=== PATIENT | male | born 1945 | race Caucasian/White ===

== ENCOUNTER 2019-11-14 16:04 | Outpatient (CLI) | payer MEDICARE, SELFPAY ==
--- NOTE | ~2019-11-14 | XR_ITS ---
EXAMINATION: XR lumbar spine bending only DATE: 11/14/2019 16:30 INDICATION: Low back pain. Spinal stenosis. Left leg numbness. TECHNIQUE: 2 lateral views of the lumbar spine were obtained in flexion and extension. COMPARISON: 05/07/2019 FINDINGS: 7 mm anterolisthesis L4 on L5 which is unchanged with flexion and extension. The L4-L5 disc space is severely narrowed with flexion and and moderately narrowed with vacuum phenomena with extension. Ther e is hypomotility in the more cephalad lumbar spine. Chronic mild anterior wedging at T12. Severe dis c height loss at T12-L1 through L2-L3 and moderate disc height loss at L3-L4 and T10-T11. Mild disc h eight loss at T8-T9, T9-T10 and T11-T12. Severe bilateral lower lumbar facet osteoarthritis. Bone isl and at the S1 segment. IMPRESSION: 1. Severe lumbar spondylosis with 7 mm anterolisthesis L4 on L5 which is unchanged with flexion and e xtension. Reviewed, dictated and finalized at location A. IMPRESSION: 1. Severe lumbar spondylosis with 7 mm anterolisthesis L4 on L5 which is unchan ged with flexion and extension.
== END 2019-11-14 16:05 | disposition home or self-care (01) ==
PROVIDERS: PCP Family Medicine; Visit Provider Neurological Surgery
DX: M54.5 Low back pain (principal); M47.816 Spondylosis without myelopathy or radiculopathy, lumbar region; M43.16 Spondylolisthesis, lumbar region
CPT/HCPCS: 72120

== ENCOUNTER 2019-11-28 06:46 | Outpatient (CLI) | payer MEDICARE, SELFPAY ==
--- NOTE | ~2019-11-28 | MR_ITS ---
EXAMINATION: MR lumbar spine wo/w con DATE: 11/28/2019 08:18 INDICATION: Lumbar spinal stenosis and spondylosis with radiculopathy. TECHNIQUE: Magnetic resonance imaging (MRI) of the lumbar spine was performed without and with 18 mL MultiHance intravenous contrast. Sequences included sagittal T2-weighted FSE, sagittal T2-weighted FS FSE, and sagittal and axial T1-weighted FSE. Postcontrast sequences included axial T2-weighted FSE a nd axial and sagittal T1-weighted FS FSE. COMPARISON: Lumbar spine MRI 01/30/2019 FINDINGS: There is 4 mm retrolisthesis of T12 on L1 and 6 mm anterolisthesis of L4 on L5. There is mi ld chronic anterior wedging of T11 and T12 vertebral bodies. There is severely decreased disc height at T12-L1, moderately decreased disc height at L1-L2, severely decreased disc height at L2-L3, modera tely decreased disc height at L3-L4, and severely decreased disc height at L4-L5 with endplate remode ling. The distal spinal cord signal intensity is normal. The conus medullaris is at L1. The following disc levels are specifically discussed: T12-L1: The disc is bulging and has an annular fissure. There is mild bilateral facet joint osteoarth ritis. There is moderate bilateral neural foraminal stenosis. There is mild central canal stenosis. L1-L2: The disc is bulging with superimposed central extrusion. There is moderate bilateral facet phuc nt osteoarthritis. There is moderate bilateral neural foraminal stenosis. There is mild central canal stenosis. L2-L3: The disc is bulging and has an annular fissure. There is mild bilateral facet joint osteoarthr itis. There is mild right and moderate left neural foraminal stenosis. There is mild central canal st enosis. L3-L4: The disc is bulging and has an annular fissure. There is mild bilateral facet joint osteoarthr itis. There is moderate bilateral neural foraminal stenosis. There is mild central canal stenosis. L4-L5: The disc is bulging and has an annular fissure. There is severe bilateral facet joint osteoart hritis. There is severe bilateral neural foraminal stenosis. There is mild central canal stenosis. L5-S1: The disc does not extend beyond the endplate margin. There is severe right and moderate left f acet joint osteoarthritis. There is no neural foraminal stenosis. There is no central canal stenosis. IMPRESSION: 1. Severe lumbar spondylosis, stable from 01/30/2019. Reviewed, dictated and finalized at location A.
[2019-11-28 07:28] LABS: Estimated Glomerular Filt Rate > 60
== END 2019-11-28 06:47 | disposition home or self-care (01) ==
PROVIDERS: PCP Family Medicine; Visit Provider Neurological Surgery
DX: M47.26 Other spondylosis with radiculopathy, lumbar region (principal); M48.062 Spinal stenosis, lumbar region with neurogenic claudication
CPT/HCPCS: 36415; 72158; A9577

== ENCOUNTER 2020-01-03 12:32 | Outpatient (CLI) | payer MEDICARE, SELFPAY ==
--- NOTE | ~2020-01-03 | US_ITS ---
EXAMINATION: US venous doppler LE RT DATE: 01/03/2020 13:13 INDICATION: Right lower limb pain TECHNIQUE: Cline scale images without and with compression and Doppler images of the right lower extre mity veins were obtained. COMPARISON: None FINDINGS: The right common femoral vein, profunda femoral vein, femoral vein, popliteal vein, peronea l trunk, posterior tibial veins, and greater saphenous vein are patent. IMPRESSION: 1. Patent right lower extremity veins. No evidence of deep venous thrombosis. Reviewed, dictated and finalized at location A.
== END 2020-01-03 12:33 | disposition home or self-care (01) ==
LOC: ANHIMG 12:35
PROVIDERS: PCP Family Medicine; Visit Provider Physician Assistant
DX: M79.89 Other specified soft tissue disorders (principal)
CPT/HCPCS: 93971

== ENCOUNTER 2020-02-27 08:25 | Outpatient (CLI) | payer MEDICARE, SELFPAY ==
--- NOTE | ~2020-02-27 | US_ITS ---
US arterial ankle brachial ind INDICATION: Bilateral leg pain TECHNIQUE: Segmental pressures and plethysmographic and Doppler waveforms of the brachial and lower e xtremity arteries were obtained. COMPARISON: None. FINDINGS: Right and left brachial artery pressures of 111 mm Hg and 111 mm Hg, respectively, are concordant (no rmal difference <= 30 mmHg). The right ankle-brachial index (ISH) is 1.33 (normal >= 0.9-1.0). The right great toe-brachial index (TBI) is 1.14 (normal >= 0.60). The left ISH is 1.34. The left TBI is 0.75. IMPRESSION: 1. Normal ankle-brachial indices. Reviewed, dictated and finalized at location B.
== END 2020-02-27 08:26 | disposition home or self-care (01) ==
PROVIDERS: PCP Family Medicine; Visit Provider Nurse Practitioner Adult Health
DX: M79.605 Pain in left leg (principal); M79.604 Pain in right leg; R09.89 Other specified symptoms and signs involving the circulatory and respiratory systems
CPT/HCPCS: 93922

== ENCOUNTER → 2020-09-14 00:13 | Outpatient (CLI) | payer MEDICARE, SELFPAY ==
[2020-09-14 19:28] LABS: SARS-CoV-2 RNA PCR Negative
== END ==
PROVIDERS: PCP Family Medicine; Visit Provider Internal Medicine Cardiovascular Disease
DX: Z01.812 Encounter for preprocedural laboratory examination (principal); Z20.822 Contact with and (suspected) exposure to COVID-19
CPT/HCPCS: C9803; U0003; U0005

== ENCOUNTER 2020-09-17 14:57 | Emergency (ER) | payer MEDICARE, SELFPAY ==
[2020-09-17] VITALS (7 sets, daily range): BP systolic 124–141; BP diastolic 73–86; PULSE 62–82; RESP 13–23; TEMP 36.4–37.1; O2SAT 95–99
--- NOTE | ~2020-09-17 | XR_ITS ---
EXAMINATION: XR chest 1V portable EXAM DATE: 09/17/2020 15:32 INDICATION: Generalized chest pain, was supposed to have cardiac catheterization today. TECHNIQUE: Portable AP frontal chest x-ray was obtained. Comparison is made to prior examination from 01/26/2018. FINDINGS: Again there is elevated left hemidiaphragm, raises possibility of paralysis which could be evaluated with a fluoroscopic guided sniff test if indicated clinically. There is adjacent segmental atelectasis. The lungs are otherwise clear. There are no pleural effusions. The cardiomediastinal s ilhouette is within normal limits. There is no pneumothorax suspected. There are mild bony degenera tive changes. IMPRESSION: 1. No acute cardiopulmonary findings. 2. Chronic left hemidiaphragm elevation, adjacent segmental atelectasis. Possible paralysis. Reviewed, dictated and finalized at location A. IMPRESSION: 1. No acute cardiopulmonary findings. 2. Chronic left hemidiaphragm elevation, adjacent segmental atelectasis. Possi ble paralysis.
--- NOTE | ~2020-09-17 | XR_ITS ---
EXAMINATION: XR abdomen obstructive series EXAM DATE: 09/17/2020 16:06 INDICATION: Abd Pain, Pt Stated I Feel Blocked Up . TECHNIQUE: Frontal upright projection of the upper abdomen, frontal projection of the lower abdomen f or interpretation. There is no prior study for comparison. FINDINGS: There is expected amount of colonic stool and gas. No small bowel dilation, nonobstructiv e bowel gas pattern. There are no suspicious calcifications identified. There is no organomegaly suspected. Moderate bony degenerative changes. There is no free intraperitoneal air. The lung bas es are clear. IMPRESSION: Unremarkable abdomen x-ray exam. Reviewed, dictated and finalized at location A.
--- NOTE | 2020-09-17 15:01 | ECG_ITS ---
Measurements Intervals [place] Rate: 73 P: -28 MS: 131 QRS: -29 QRSD: 134 T: 3 QT: 407 QTc: 451 Interpretive Statements SINUS RHYTHM RIGHT BUNDLE BRANCH BLOCK ABNORMAL ECG Electronically Signed On 09-17-2020 16:08:04 CDT by Rubens Ruiz D.O.
[2020-09-17] MEDS: ASPIRIN 81 MG CHEWABLE TABLET 324 MG PO (16:16)
[2020-09-17 16:17] LABS: Basophils Percent Auto 0.5 % (0.2-1.2); Eosinophils Absolute Auto 0.1 K/mm3 (0-0.3); Eosinophils Percent Auto 1.7 % (0-4.4); Hematocrit 40.4 % (42.0-52.0); Hemoglobin 14.1 g/dL (14.0-18.0); Immature Granulocyte Absolute 0.04 K/mm3 (0.00-0.031); Immature Granulocyte Percent A 0.5 % (0-0.5); Lymphocytes Absolute Auto 1.21 K/mm3 (0.9-3.2); Mean Corpuscular HGB Conc 34.9 g/dl (32-36); Mean Corpuscular Hemoglobin 31.6 pg (26-34); Mean Corpuscular Volume 90.6 fl (80-100); Mean Platelet Volume 9.9 fl (7.4-10.4); Monocytes Absolute Auto 0.7 K/mm3 (0.1-0.6); Monocytes Percent Auto 9.8 % (2.6-8.5); Neutrophils Absolute Auto 5.4 K/mm3 (1.3-6.7); Neutrophils Percent Auto 71.5 % (45.5-73.1); Platelet Count Result 265 k/mm3 (150-375); Red Blood Count 4.46 M/mm3 (4.6-6.20); Red Cell Distribution Width 12.4 % (11.5-14.5); White Blood Count 7.6 K/mm3 (4.5-10.0)
[2020-09-17 16:32] LABS: Alanine Aminotransferase 22 U/L (4-50); Albumin Level 4.5 g/dL (3.5-5.1); Alkaline Phosphatase 65 U/L (38-126); Anion Gap 6 mmol/L (8-16); Aspartate Amino Transferase 32 U/L (17-59); Bilirubin,Total 1.2 mg/dL (0.2-1.3); Blood Urea Nitrogen 17 mg/dL (9-20); Calcium 9.1 mg/dL (8.4-10.2); Carbon Dioxide 33 mmol/L (22-30); Chloride 95 mmol/L (98-107); Estimated CRCL calculation 76 ml/min; Estimated Glomerular Filt Rate > 60; Glucose 86 mg/dL (75-110); Sodium 134 mmol/L (137-145)
[2020-09-17 16:42] LABS: Prothrombin Time 13.6 Seconds (11.1-14.7)
[2020-09-17 16:43] LABS: Partial Thromboplastin Time 25.2 SECONDS (22.3-36.8)
[2020-09-17 16:44] LABS: NT Pro B Type Natriuretic Pept 64 PG/ML (5-100); Troponin I < 0.012 ng/mL (0.000-0.034)
[2020-09-17] MEDS: HYOSCYAMINE SULFATE 0.125 MG TABLET PO (17:21)
--- NOTE | 2020-09-17 18:23 | ED.CHESTPAIN ---
HPI - Chest Pain General Chief Complaint: Chest Pain Stated Complaint: Chest Pain, Cath Rescheduled from today Time Seen by Provider: 09/17/20 15:13 Source: patient and old records reviewed Mode of arrival: ambulatory Limitations: no limitations History of Present Illness HPI narrative: Patient is 75-year-old male who presents to emergency department for evaluation of epigastric abdominal pain GI upset that has been present now for over a week patient notes that he was scheduled to have a cardiac catheterization but is waiting for insurance approval. Patient notes he had had a normal catheterization approximately 7 years ago. Patient notes he has been having issues with gas and constant constipation and that his pain is more in the epigastrium and GI in nature. Denies any chest pain shortness of breath URI symptoms vomiting rectal bleeding or melena. On arrival patient is pain-free patient has been having intermittent episodes for over a week Related Data Allergies Allergy/AdvReac Type Severity Reaction Status Date / Time simvastatin Allergy Unknown Unknown Verified 09/17/20 16:16 Review of Systems Review of Systems: All systems reviewed & are unremarkable except as noted in HPI and below PMFSH Past Medical History Medical History Atrophy of muscle of left thigh Colon polyps Surgical History Surgical History History of lumbar laminectomy for spinal cord decompression Family History Family History (Reviewed 08/13/20 @ 14:33 by Alla Denise, [facility]) Mother Family history of thyroid disease Hypertension Other Family history of cardiovascular disease Malignant neoplasm of prostate Social History Social History Smoking status: Never smoker Alcohol intake: never Gender identity (if verbalized by the patient): Male Exam Narrative: Exam Narrative: GENERAL: Well-appearing, well-nourished, and in no acute distress. HEAD: Normocephalic, atraumatic. EYES: PERRLA and EOMI. ENT: Nares clear, no rhinorrhea or epistaxis. Mucous membranes moist. Oropharynx without tonsillar hypertrophy exudate or other lesions. Bilateral TMs pearly ortiz nonbulging NECK: Supple. No adenopathy or masses. No carotid bruits or JVD CHEST: Clear to auscultation. No respiratory distress. No wheezes rales or rhonchi HEART: Regular rate and rhythm. No murmur heard. Normal peripheral pulses. ABDOMEN: Soft, epigastric tenderness to palpation, nondistended, normal active bowel sounds. EXTREMITIES: Normal range of motion. No edema. SKIN: Warm, dry, no rash. NEURO: No focal deficits. Alert and oriented x3. PSYCH: Normal mood and affect. Course Course Emergency Course: Patient in the room in no distress aware of case findings treatment plan and diagnosis agreeing to follow-up as instructed. Patient symptoms seem more GI in nature reproducible with epigastric tenderness symptoms been present for over a week or longer. 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 Patient otherwise in the room in no distress resting comfortably agrees with this plan and is aware of his follow-up with primary care and discussion with primary care for tomorrow Consultations Consultation #1: Discussed case with Dr. Hastings who will follow the patient tomorrow in clinic would like the patient to be treated for constipation Date: 09/17/20 Time: 19:57 Vital Signs Vital signs: Vital Signs Temperature 98.7 F 09/17/20 15:14 Pulse Rate 72 09/17/20 15:14 Respiratory Rate 15 09/17/20 15:14 Blood Pressure 132/80 09/17/20 15:14 Pulse Oximetry 98 09/17/20 15:14 Temperature 98.7 F 09/17/20 15:14 Pulse Rate 75 09/17/20 18:32 Respiratory Rate 17 09/17/20 18:17 Blood Pressure 129/73 09/17/20 18:17 Pulse Oximetry 99 09/17/20 18
[2020-09-17 19:01] LABS: Troponin I < 0.012 ng/mL (0.000-0.034)
== END 2020-09-17 20:18 | disposition home or self-care (01) ==
PROVIDERS: Emergency Medicine Emergency Medical Services; Emergency Provider Emergency Medicine; PCP Family Medicine
DX: R10.13 Epigastric pain (principal); Z86.010 Personal history of colon polyps; I45.10 Unspecified right bundle-branch block; R91.8 Other nonspecific abnormal finding of lung field
CPT/HCPCS: 36415; 71045; 74019; 80053; 83880; 84484; 85025; 85610; 85730; 93005; 99284; A9270

== ENCOUNTER → 2020-10-16 00:28 | Outpatient (CLI) | payer MEDICARE, SELFPAY ==
[2020-10-16 18:42] LABS: SARS-CoV-2 RNA PCR Negative
== END ==
PROVIDERS: Internal Medicine Cardiovascular Disease; PCP Family Medicine; Visit Provider Internal Medicine Gastroenterology
DX: Z01.812 Encounter for preprocedural laboratory examination (principal); Z20.822 Contact with and (suspected) exposure to COVID-19
CPT/HCPCS: C9803; U0003; U0005

== ENCOUNTER 2020-10-19 01:48 | Day surgery (SDC) | payer MEDICARE, SELFPAY ==
[2020-10-08 13:40] VITALS: BMI 31.8
[2020-10-19 10:49] VITALS: BP 142/85; PULSE 73; RESP 18; TEMP 36.3; O2SAT 100; BMI 31.2
[2020-10-19] MEDS: LACTATED RINGERS 1,000 ML 150 ML IV CONT (10:55)
--- NOTE | 2020-10-19 11:16 | P.PNAN_ITS ---
Anes - Initial Pre Proc Eval Procedure: Operation Date: 10/19/20 13:30 Proposed Procedures p Esophagogastroduodenoscopy & Screening Colonoscopy - Felix Bob MD Date/Time: 10/19/20 11:16 Surgeon: Felix Barnes MD Pre Op Diagnosis: hx colon polyps, GERD Patient Data Age: 75 Gender: M Height: 5 ft 8 in Weight: 93.3 kg Last Vital Signs Temp 97.3 F L 10/19/20 10:49 Pulse 73 10/19/20 10:49 Resp 18 10/19/20 10:49 BP 142/85 H 10/19/20 10:49 Pulse Ox 100 10/19/20 10:49 Allergies Allergy/AdvReac Type Severity Reaction Status Date / Time simvastatin Allergy Unknown Cramping Verified 10/19/20 10:46 of the Muscles Home Medications Medication Instructions Recorded Confirmed Type lisinopril 10 1 tablet PO DAILY #90 tablet 01/24/20 10/19/20 Rx mg-hydrochlorothiazide 12.5 mg tablet alprazolam 0.25 mg tablet 0.25 mg PO BID PRN #60 tablet 07/30/20 10/19/20 Rx fluticasone propionate 50 See Rx Instructions .ROUTE 09/02/20 10/19/20 Rx mcg/actuation nasal .COMPLEX #16 milliliter spray,suspension polyethylene glycol 3350 [Miralax] 17 g PO BID #14 ea 09/17/20 10/19/20 Rx pravastatin 10 mg PO DAILY 10/08/20 10/19/20 History famotidine 20 mg tablet See Rx Instructions .ROUTE 10/14/20 10/19/20 Rx .COMPLEX #60 tablet Patient hx anesthesia problems: none Family hx anesthesia problems: none PMFSH Past Medical History Medical History (Updated 10/07/20 @ 15:35 by Elie Hastings MD) Atrophy of muscle of left thigh Colon polyps Obesity (BMI 30.0-34.9) Surgical History Surgical History History of lumbar laminectomy for spinal cord decompression Family History Family History Mother Family history of thyroid disease Hypertension Other Family history of cardiovascular disease Malignant neoplasm of prostate Social History Social History (Reviewed 10/07/20 @ 14:50 by Vanessa Laird [facility]) Smoking status: Former smoker Alcohol intake: never Substance use: current Substance use type: marijuana Other substance usage details: Daily for pain Living arrangements: with family Gender identity (if verbalized by the patient): Male Spiritual care concerns: No Anes - Eval Final PreProcedure Day of Procedure 10/19/20 11:16 Patient weight: overweight Heart: regular rate and rhythm Lungs: clear to auscultation Airway: Mallampati scale class II Neurological: alert and oriented Last oral intake: >/= 8 hours ASA classification: III Emergent: no Anesthetic plan: proceed Anesthesia type and monitoring: general GIVS and standard monitoring Informed Consent: The patient's anesthetic plan and its attendant risks and benefits were discussed with the patient/family/POA. Questions were solicited and answers provided to the satisfaction of the patient/family/POA.
--- NOTE | 2020-10-19 11:40 | PM.HPGS ---
History of Present Illness History of Present Illness Consent: Risks, benefits, and alternatives have been discussed and questions answered. Patient agrees to proceed with procedure. Chief complaint: hx colon polyps, GERD Narrative: Micha Hyatt is a 75 year old male with gerd controlled with famotidine, last colonoscopy 2016 with polyps Review of Systems Constitutional: Constitutional: Denies headache(s) and Denies weakness Eyes: Eyes: Denies blurry vision ENT: Reports Normal hearing present, Denies headache(s) and Denies neck pain Cardiovascular: Cardiovascular: Denies chest pain and Denies dyspnea Respiratory: Respiratory: Denies dyspnea Gastrointestinal: Gastrointestinal: Reports no additional gastrointestinal complaints Genitourinary: Genitourinary: Denies dysuria Musculoskeletal: Musculoskeletal: Denies neck pain Integumentary/Breasts: Skin/Breast: Denies dry skin Neurologic: Reports Normal hearing present, Denies headache(s) and Denies weakness Psychiatric: Psychiatric: Denies anxiety Endocrine: Endocrine: Denies change in body appearance Hematologic/Lymphatic: Hematologic/Lymphatic: Denies easy bleeding Allergic/Immunologic: Allergic/Immunologic: Denies urticaria PMF Past Medical History Medical History (Updated 10/07/20 @ 15:35 by Elie Hastings MD) Atrophy of muscle of left thigh Colon polyps Obesity (BMI 30.0-34.9) Surgical History Surgical History History of lumbar laminectomy for spinal cord decompression Family History Family History Mother Family history of thyroid disease Hypertension Other Family history of cardiovascular disease Malignant neoplasm of prostate Social History Social History Smoking status: Former smoker Alcohol intake: never Substance use: current Substance use type: marijuana Other substance usage details: Daily for pain Living arrangements: with family Gender identity (if verbalized by the patient): Male Spiritual care concerns: No Meds Home Medications and Allergies Home Medications Medication Instructions Recorded Confirmed Type lisinopril 10 1 tablet PO DAILY #90 tablet 01/24/20 10/19/20 Rx mg-hydrochlorothiazide 12.5 mg tablet alprazolam 0.25 mg tablet 0.25 mg PO BID PRN #60 tablet 07/30/20 10/19/20 Rx fluticasone propionate 50 See Rx Instructions .ROUTE 09/02/20 10/19/20 Rx mcg/actuation nasal .COMPLEX #16 milliliter spray,suspension polyethylene glycol 3350 [Miralax] 17 g PO BID #14 ea 09/17/20 10/19/20 Rx pravastatin 10 mg PO DAILY 10/08/20 10/19/20 History famotidine 20 mg tablet See Rx Instructions .ROUTE 10/14/20 10/19/20 Rx .COMPLEX #60 tablet Allergies Allergy/AdvReac Type Severity Reaction Status Date / Time simvastatin Allergy Unknown Cramping Verified 10/19/20 10:46 of the Muscles Vital Signs Vital Signs - 24 hr 10/19/20 10:49 Temperature 97.3 F L Pulse Rate 73 Respiratory Rate 18 Blood Pressure 142/85 H Pulse Oximetry 100 Exam Const: General: comfortable and no acute distress HENMT: General nose exam: Normal nares present Eyes: General: appearance normal, both eyes and all related structures Neck: Neck: no JVD Resp: Auscultation: clear to auscultation bilaterally Cardio: Rate: regular rate Rhythm: regular rhythm GI: Inspection: non-distended GI Palp: Yes Soft to palpation Skin: General skin exam: normal color Neuro: General: gait normal Speech: normal speech Extrem: General: normal to inspection Psych: Mental Status: mental status grossly normal Assessment and Plan Assessment and plan (1) Colon polyps: Code(s): K63.5 - Polyp of colon Status: Acute Assessment and Plan: colonoscopy (2) Gastroesophageal reflux disease with esophagitis:
[2020-10-19 12:16] VITALS: BP 109/74; PULSE 72; RESP 25; O2SAT 99
[2020-10-19 12:26] VITALS: BP 124/70; PULSE 62; RESP 16; O2SAT 99
[2020-10-19 12:36] VITALS: BP 127/82; PULSE 66; RESP 23; O2SAT 99
== END 2020-10-19 12:45 | disposition home or self-care (01) ==
PROVIDERS: PCP Family Medicine; Visit Provider Internal Medicine Gastroenterology
PROC: 0DJ08ZZ Inspection of Upper Intestinal Tract, Via Natural or Artificial Opening Endoscopic (ICD-10-PCS; CPT 43235; principal; 2020-10-19 13:30)
DX: Z12.11 Encounter for screening for malignant neoplasm of colon (principal); D12.2 Benign neoplasm of ascending colon; D12.3 Benign neoplasm of transverse colon; D12.4 Benign neoplasm of descending colon; K63.5 Polyp of colon; K63.89 Other specified diseases of intestine; K57.30 Diverticulosis of large intestine without perforation or abscess without bleeding; K64.8 Other hemorrhoids; D17.5 Benign lipomatous neoplasm of intra-abdominal organs; K29.70 Gastritis, unspecified, without bleeding; K21.9 Gastro-esophageal reflux disease without esophagitis; F12.90 Cannabis use, unspecified, uncomplicated
CPT/HCPCS: 45385; 43239; 88305; C9803; J7120; U0003; U0005

== ENCOUNTER → 2020-11-02 02:11 | Outpatient (CLI) | payer MEDICARE, SELFPAY ==
[2020-11-04 12:52] LABS: SARS-CoV-2 RNA PCR Negative
== END ==
PROVIDERS: PCP Family Medicine; Visit Provider Internal Medicine Cardiovascular Disease
DX: Z01.812 Encounter for preprocedural laboratory examination (principal); Z20.822 Contact with and (suspected) exposure to COVID-19
CPT/HCPCS: C9803; U0003; U0005

== ENCOUNTER 2020-11-05 01:38 | Day surgery (SDC) | payer MEDICARE, SELFPAY ==
[2020-11-04 16:47] VITALS: BMI 31.8
[2020-11-05] VITALS (8 sets, daily range): BP systolic 124–149; BP diastolic 69–84; PULSE 58–76; RESP 14–20; TEMP 36.4; O2SAT 98–100; BMI 31.1
[2020-11-05 07:59] LABS: Basophils Absolute Auto 0.1 K/mm3 (0.0-0.1); Basophils Percent Auto 0.8 % (0.2-1.2); Eosinophils Absolute Auto 0.1 K/mm3 (0-0.3); Eosinophils Percent Auto 1.9 % (0-4.4); Hematocrit 42.3 % (42.0-52.0); Hemoglobin 14.4 g/dL (14.0-18.0); Immature Granulocyte Absolute 0.02 K/mm3 (0.00-0.031); Immature Granulocyte Percent A 0.3 % (0-0.5); Lymphocytes Absolute Auto 1.17 K/mm3 (0.9-3.2); Lymphocytes Percent Auto 18.1 % (18.3-44.2); Mean Corpuscular Hemoglobin 31.4 pg (26-34); Mean Corpuscular Volume 92.4 fl (80-100); Mean Platelet Volume 9.7 fl (7.4-10.4); Monocytes Absolute Auto 0.7 K/mm3 (0.1-0.6); Monocytes Percent Auto 10.2 % (2.6-8.5); Neutrophils Absolute Auto 4.4 K/mm3 (1.3-6.7); Neutrophils Percent Auto 68.7 % (45.5-73.1); Platelet Count Result 271 k/mm3 (150-375); Red Blood Count 4.58 M/mm3 (4.6-6.20); Red Cell Distribution Width 12.5 % (11.5-14.5); White Blood Count 6.5 K/mm3 (4.5-10.0)
--- NOTE | 2020-11-05 08:00 | WPDMODSED ---
Moderate Sedation Note-Pt Data Patient Data Allergies Allergy/AdvReac Type Severity Reaction Status Date / Time simvastatin Allergy Unknown Cramping Verified 10/19/20 10:46 of the Muscles Home Medications Medication Instructions Recorded Confirmed Type lisinopril 10 1 tablet PO DAILY #90 tablet 01/24/20 11/04/20 Rx mg-hydrochlorothiazide 12.5 mg tablet alprazolam 0.25 mg tablet 0.25 mg PO BID PRN #60 tablet 07/30/20 11/04/20 Rx fluticasone propionate 50 See Rx Instructions .ROUTE 09/02/20 11/04/20 Rx mcg/actuation nasal .COMPLEX #16 milliliter spray,suspension polyethylene glycol 3350 [Miralax] 17 g PO BID #14 ea 09/17/20 11/04/20 Rx pravastatin 10 mg PO HS 10/08/20 11/04/20 History famotidine 20 mg tablet See Rx Instructions .ROUTE 10/14/20 11/04/20 Rx .COMPLEX #60 tablet plecanatide 3 mg tablet 3 mg PO DAILY #30 tablet 10/19/20 Rx acetaminophen 1,000 mg PO BID PRN 11/04/20 11/04/20 History aspirin 650 mg PO DAILY PRN 11/04/20 11/04/20 History capsicum (cayenne) 500 mg PO DAILY 11/04/20 11/04/20 History cholecalciferol (vitamin D3) 125 mcg PO DAILY 11/04/20 11/04/20 History [Vitamin D3] coenzyme Q10 100 mg PO DAILY 11/04/20 11/04/20 History ibuprofen 400 mg PO Q6H PRN 11/04/20 11/04/20 History melatonin 10 mg PO HS PRN 11/04/20 11/04/20 History nitroglycerin 0.4 mg SUBLINGUAL Q5M PRN 11/04/20 11/04/20 History pyridoxine (vitamin B6) 100 mg PO DAILY 11/04/20 11/04/20 History Current Medications: Active Medications Sodium Chloride (Normal Saline Iv) 500 mls @ 100 mls/hr IV CONT .Q5H [facility] Sedation/Anesthesia: No previous sedation/anesthesia problems (including family history). [facility] Past Medical History Medical History Atrophy of muscle of left thigh Colon polyps Obesity (BMI 30.0-34.9) Surgical History Surgical History History of lumbar laminectomy for spinal cord decompression Family History Family History Mother Family history of thyroid disease Hypertension Other Family history of cardiovascular disease Malignant neoplasm of prostate Social History Social History Smoking status: Former smoker Alcohol intake: never Substance use: current Substance use type: marijuana Other substance usage details: Daily for pain Gender identity (if verbalized by the patient): Male Spiritual care concerns: No Mod Sed Physical Exam Physical Exam Pre Procedural Exam: Normal: Appearance, Eyes, Ears, Nose, Neck, Throat, Airway, Lungs, Heart Size, Heart Rate, Heart Rhythm, Neuro Exam, Abdomen, Liver, Kidneys, Spleen, Breasts, Genitalia, Extremities and Skin Hours since solid foods: 8 Hours since liquid intake: 8 Internal Medicine - PN: Obj Da Vital Signs Vital Signs: Vital Signs - 24 hr 11/05/20 07:50 Temperature 36.4 C Pulse Rate 68 Respiratory Rate 14 Blood Pressure 149/84 H Pulse Oximetry 98 Meds/Results Medications: Active Medications Generic Name Dose Route Start Last Admin Trade Name Freq PRN Reason Stop Dose Admin Sodium Chloride 500 mls @ 100 mls/hr 11/05/20 07:30 Normal Saline Iv IV CONT .Q5H [facility] Labs CBC & Chem 7: 11/05/20 07:49 11/05/20 07:49 Labs: Laboratory Results - last 24 hr 11/05/20 11/05/20 11/05/20 07:49 07:49 07:49 WBC 6.5 RBC 4.58 L Hgb 14.4 Hct 42.3 MCV 92.4 MCH 31.4 MCHC 34.0 RDW 12.5 Plt Count 271 MPV 9.7 Immature Gran % (Auto) 0.3 Neut % (Auto) 68.7 Lymph % (Auto) 18.1 L [place] % (Auto) 10.2 H Eos % (Auto) 1.9 Baso % (Auto) 0.8 Lymph # (Auto) 1.17 [place] # (Auto) 0.7 H Eos # (Auto) 0.1 Baso # (Auto) 0.1 Abs Immat Gran (auto) 0.02 Absolute Neuts (auto) 4.4 Absolute Nucleated RBC 0.0 N
[2020-11-05 08:08] LABS: INR 0.9; Prothrombin Time 12.7 Seconds (11.1-14.7)
[2020-11-05 08:14] LABS: Anion Gap 8 mmol/L (8-16); Blood Urea Nitrogen 14 mg/dL (9-20); Calcium 9.5 mg/dL (8.4-10.2); Carbon Dioxide 31 mmol/L (22-30); Chloride 98 mmol/L (98-107); Estimated CRCL calculation 68 ml/min; Estimated Glomerular Filt Rate > 60; Glucose 108 mg/dL (75-110); Potassium 3.9 mmol/L (3.4-5.0); Sodium 137 mmol/L (137-145)
--- NOTE | 2020-11-05 09:54 | WPDHPUPDATE1 ---
History and Physical Update Update Date/Time: 11/05/20 08:00 am History and Physical has been reviewed, including an updated exam of the patient. There are NO changes in the patient's condition. Risks, benefits, and alternatives have been discussed and questions answered. Patient agrees to proceed with procedure.
--- NOTE | 2020-11-05 09:55 | WPDCARDPROC ---
Cardiac Cath Procedure Note Date of procedure:: 11/05/20 Performing physician:: Toña Sinha MD Date of service 11/05/2020 Indication:: epigastric abdominal pain Brief clinical history:: this is 75-year-old patient with past medical history hypertension, hyperlipidemia who was evaluated for recurrent episodes of fever epigastric abdominal pain. Due to recurrent episodes of epigastric abdominal pain was brought in here to define coronary anatomy and rule out CAD. Procedure Procedure performed:: 1-Moderate sedation that started at 929 am and ended at 9:50 a.m. with total duration 21 minutes using 2mg of Versed and 50mcg fentanyl. The registered nurse was kassi velázquez 2-Selective left and right coronary angiogram. 3-Left heart catheterization with measurement of LVEDP and measurement of gradient across aortic valve. 4- LV angiogram. 4-Right common femoral arterial angiogram. 5-Deployment of 6 Spanish Angio-Seal. Sedation/Medication given:: Moderate sedation. Access site:: Right common femoral artery. Estimated blood loss:: 10cc Procedure note:: After informed consent patient was brought in to cathode ray tube salvage processor with the was draped and prepped in usual manner. Moderate sedation was given and the right groin was infiltrated using 1% lidocaine. Five Spanish sheath was obtained using micropuncture needle and the modified Seldinger technique. Selective left coronary angiogram was done using JL4 catheter with the tip of the catheter placed in the left main coronary artery. Selective right coronary angiogram was done using JR4 catheter with the tip of the catheter placed to the right coronary artery. After that 5 Spanish pigtail catheter was advanced across the aortic valve into the left ventricle with measurement of LVEDP and measurement of gradient across aortic valve. LV angiogram was done as well. Right common femoral arterial angiogram was done. Findings:: 1- left coronary artery is a large artery that divides into large LAD, large circumflex artery. Left main is Free of disease. 2- left anterior descending artery is a large artery that runs To the apex. Has calcification proximally. Has minimal irregularities. Two medium-sized diagonal branches with minimal irregularities. 3- leftcircumflex artery is a large artery And codominant. Has proximal calcification. Proximally a small OM1 with minimal irregularities. Left PDA is not large small in caliber and free of disease. 4- right coronary artery is very large artery with minimal calcification mid segment. 5- LVEDP was 7 mm Hg and no gradient across aortic valve. 5- LV angiogram shows normal LV systolic function with estimated ejection fraction 55%. 6- opening arterial pressure was 155/80 and closing pressure was 112/70. 7- right femoral artery angiogram shows no significant disease in the right common femoral artery. Conclusion:: 1- minimal coronary irregularities and minimal calcification. Assessment and Plan Additional Plan 1- epigastric abdominal pain is not related to coronary artery disease. 2- Recommend GI follow-up
== END 2020-11-05 13:00 | disposition home or self-care (01) ==
PROVIDERS: PCP Family Medicine; Visit Provider Internal Medicine Cardiovascular Disease
PROC: 4A023N7 Measurement of Cardiac Sampling and Pressure, Left Heart, Percutaneous Approach (ICD-10-PCS; CPT 93452; principal; 2020-11-05 09:00)
DX: R10.13 Epigastric pain (principal); I25.10 Atherosclerotic heart disease of native coronary artery without angina pectoris; I10 Essential (primary) hypertension; E78.5 Hyperlipidemia, unspecified; E66.9 Obesity, unspecified; Z68.31 Body mass index [BMI] 31.0-31.9, adult; Z87.891 Personal history of nicotine dependence
CPT/HCPCS: 36415; 80048; 85025; 85610; 93458; C1760; C1887; C1894; C9803; G0269; J1644; J2250; J3010; J7040; U0003; U0005

== ENCOUNTER 2021-01-07 07:36 | Outpatient (CLI) | payer MEDICARE, SELFPAY ==
--- NOTE | ~2021-01-07 | US_ITS ---
EXAMINATION: US aorta [facility] DATE: 01/07/2021 08:26 INDICATION: Abdominal aortic aneurysm screening with risk factors of prior smoking, hypertension and hypercholesterolemia TECHNIQUE: Grayscale, color Doppler, and pulsed Doppler images of the aorta and common iliac arteries were obtained. COMPARISON: None. FINDINGS: The proximal aorta measures 2.6 cm. The mid aorta measures 2.1 cm. The distal aorta measures 1.3 cm. The right common iliac artery measures 1.1 cm. The left common iliac artery measures 1.1 cm. IMPRESSION: 1. Normal caliber abdominal aorta. Reviewed, dictated and finalized at location A.
== END 2021-01-07 07:37 | disposition home or self-care (01) ==
PROVIDERS: PCP Family Medicine; Visit Provider Physician Assistant Medical
DX: Z87.891 Personal history of nicotine dependence (principal)
CPT/HCPCS: 76706

== ENCOUNTER 2022-08-18 11:19 | Outpatient (CLI) | payer MEDICARE, SELFPAY ==
[2022-08-18 20:37] LABS: LDL Cholesterol Direct 39 mg/dL
[2022-08-18 20:55] LABS: Prostate Specific Antigen < 0.1 ng/mL (< OR = 4.0)
[2022-08-18 21:08] LABS: Alanine Aminotransferase 24 U/L (6-50); Albumin Level 4.5 g/dL (3.5-5.1); Alkaline Phosphatase 76 U/L (38-126); Anion Gap 9 mmol/L (8-16); Aspartate Amino Transferase 28 U/L (17-59); Blood Urea Nitrogen 17 mg/dL (9-20); Calcium 9.4 mg/dL (8.4-10.2); Carbon Dioxide 31 mmol/L (22-30); Chloride 95 mmol/L (98-107); Cholesterol 278 mg/dL (0-200); Estimated Glomerular Filt Rate > 60; Glucose 112 mg/dL (65-110); Potassium 4.1 mmol/L (3.4-5.0); Sodium 135 mmol/L (137-145)
[2022-08-18 21:36] LABS: Hemoglobin A1C 5.6 % (<5.7)
[2022-08-18 22:25] LABS: Triglycerides 738 mg/dL (<150)
== END 2022-08-18 11:20 | disposition home or self-care (01) ==
LOC: ANHGOSHLAB 11:20
PROVIDERS: PCP Family Medicine; Visit Provider Family Medicine
DX: E78.5 Hyperlipidemia, unspecified (principal); C67.9 Malignant neoplasm of bladder, unspecified; I73.9 Peripheral vascular disease, unspecified
CPT/HCPCS: 36415; 80053; 80061; 83036; 84153; 84443

== ENCOUNTER 2022-09-22 08:59 | Outpatient (CLI) | payer MEDICARE, SELFPAY ==
--- NOTE | ~2022-09-22 | NM_ITS ---
EXAM: NM gastric emptying study DATE: 09/22/2022 15:33 INDICATION: Postprandial epigastric bloating. TECHNIQUE: A gastric emptying study was performed using the methodology of Michelle MCNEILL, et al. J Nucl Med 2007; 48:568-572. The patient was given a meal consisting of 2 scrambled eggs labeled with 1.002 mCi Tc-99m sulfur colloid, 2 slices of toast, two packages of jam, and approximately 120 mL of water . Simultaneous anterior and posterior 1-min images of the abdomen were obtained with the patient supi ne at multiple time points over a total period of 4 hours. The geometric mean of anterior and posteri or views was determined, and the percentage retention was calculated for each time point. COMPARISON: None. FINDINGS: Gastric retention of the radiotracer-labeled meal was 41%, 19%, and 2% at the 1-hour, 2-ho ur, and 4-hour time points, respectively. With this technique, apparent rapid gastric emptying is sug gested by <30% gastric retention at 1 hour. Delayed gastric emptying is defined by gastric retention of >90% at 1 hour, >60% retention at 2 hours, or >10% retention at 4 hours. IMPRESSION: 1. Normal gastric emptying. Reviewed, dictated and finalized at location A. IMPRESSION: 1. Normal gastric emptying.
== END 2022-09-22 09:00 | disposition home or self-care (01) ==
PROVIDERS: PCP Family Medicine; Visit Provider Nurse Practitioner Family
DX: R14.0 Abdominal distension (gaseous) (principal)
CPT/HCPCS: 78264; A9541

== ENCOUNTER 2022-12-26 08:03 | Outpatient (CLI) | payer MEDICARE, SELFPAY ==
[2022-12-26 13:54] LABS: Alanine Aminotransferase 24 U/L (6-50); Albumin Level 4.2 g/dL (3.5-5.1); Alkaline Phosphatase 54 U/L (38-126); Anion Gap 6 mmol/L (8-16); Aspartate Amino Transferase 32 U/L (17-59); Bilirubin,Total 0.9 mg/dL (0.2-1.3); Blood Urea Nitrogen 14 mg/dL (9-20); Calcium 9.3 mg/dL (8.4-10.2); Carbon Dioxide 34 mmol/L (22-30); Chloride 97 mmol/L (98-107); Cholesterol 164 mg/dL (0-200); Estimated Glomerular Filt Rate > 60; Glucose 92 mg/dL (65-110); HDL Direct 34 mg/dL; Potassium 3.9 mmol/L (3.4-5.0); Sodium 137 mmol/L (137-145); Triglycerides 268 mg/dL (<150)
[2022-12-26 14:05] LABS: LDL Cholesterol Direct 39 mg/dL
== END 2022-12-26 08:04 | disposition home or self-care (01) ==
LOC: ANHGOSHLAB 08:05
PROVIDERS: PCP Family Medicine; Visit Provider Family Medicine
DX: E78.5 Hyperlipidemia, unspecified (principal)
CPT/HCPCS: 36415; 80053; 80061

== ENCOUNTER → 2023-04-17 08:13 | Outpatient (CLI) | payer MEDICARE, SELFPAY ==
--- NOTE | ~2023-04-17 | MR_ITS ---
EXAMINATION: MR lumbar spine wo con DATE: 04/17/2023 08:58 INDICATION: Lumbar spinal stenosis with low back pain TECHNIQUE: Magnetic resonance imaging (MRI) of the lumbar spine was performed without intravenous con trast. Sequences included sagittal T2-weighted FSE, sagittal T2-weighted FS FSE, sagittal T1-weighted FSE, and axial T2-weighted FSE. COMPARISON: None FINDINGS: 4 mm retrolisthesis T12 on L1 and 7 mm anterolisthesis L4 on L5. Chronic mild anterior wedging at T11 and T12. Severe disc height loss at T12-L1, L2-L3 and L4-L5, moderately decreased disc height at T10 -T11, L2 and L2 and L3-L4. Mild disc height loss at T11-T12. Endplate remodeling with fibrovascular d egenerative endplate changes at L4-L5 and to lesser degree L3-L4. The conus medullaris terminates at L1. There is normal signal in the caudal spinal cord. Paravertebral soft tissues are unremarkable. Th e following disc levels are specifically discussed: T12-L1: Disc is bulging with annular fissure. There is mild bilateral facet joint osteoarthritis. The re is moderate bilateral neural foraminal stenosis. There is mild central canal stenosis. L1-L2: Disc is bulging with annular fissure and small central disc extrusion with disc material exten ding 10 mm caudal to the level of the superior endplate of L2. There is moderate bilateral facet join t osteoarthritis. There is moderate bilateral neural foraminal stenosis. There is mild central canal stenosis. L2-L3: The disc does not extend beyond a prominent L2 inferior endplate osteophyte. There is mild lef t and moderate right facet joint osteoarthritis. There is moderate left and mild to moderate right ne ural foraminal stenosis. There is mild central canal stenosis. L3-L4: Disc is bulging with annular fissure. There is mild left and moderate right facet joint osteoa rthritis. There is moderate bilateral neural foraminal stenosis. There is mild central canal stenosis . L4-L5: Disc is bulging with annular fissure. There is severe bilateral facet joint osteoarthritis. Th ere is severe left and moderate to severe right neural foraminal stenosis. Posterior decompression wi th right-sided hemilaminotomy. There is moderate central canal stenosis. L5-S1: The disc does not extend beyond the endplate margin. There is moderate bilateral facet joint o steoarthritis. There is mild left neural foraminal stenosis. There is no central canal stenosis. IMPRESSION: 1. Minimal progression in severe lumbar spondylosis. Reviewed, dictated and finalized at location A. F CONSTRUCTION INSPECTOR
== END ==
PROVIDERS: PCP Family Medicine; Visit Provider Family Medicine
DX: M48.061 Spinal stenosis, lumbar region without neurogenic claudication (principal)
CPT/HCPCS: 72148

== ENCOUNTER 2023-05-19 08:05 | Outpatient (CLI) | payer MEDICARE, SELFPAY ==
[2023-05-19 12:50] LABS: Alanine Aminotransferase 22 U/L (6-50); Albumin Level 4.2 g/dL (3.5-5.1); Alkaline Phosphatase 94 U/L (38-126); Anion Gap 10 mmol/L (8-16); Aspartate Amino Transferase 34 U/L (17-59); Blood Urea Nitrogen 16 mg/dL (9-20); Calcium 9.3 mg/dL (8.4-10.2); Carbon Dioxide 27 mmol/L (22-30); Chloride 100 mmol/L (98-107); Cholesterol 219 mg/dL (0-200); Estimated Glomerular Filt Rate > 60; Glucose 83 mg/dL (65-110); HDL Direct 35 mg/dL; Potassium 4.1 mmol/L (3.4-5.0); Sodium 137 mmol/L (137-145); Triglycerides 192 mg/dL (<150)
[2023-05-19 13:01] LABS: LDL Cholesterol Direct 84 mg/dL
[2023-05-22 13:07] LABS: C-Peptide 1.06 ng/mL (0.80-3.85); Insulin Level Total 3.3 uIU/mL (<=18.4)
== END 2023-05-19 08:06 | disposition home or self-care (01) ==
LOC: ANHGOSHLAB 08:07
PROVIDERS: PCP Family Medicine; Visit Provider Family Medicine
DX: E78.2 Mixed hyperlipidemia (principal); E87.20 Acidosis, unspecified; R25.2 Cramp and spasm
CPT/HCPCS: 36415; 80053; 80061; 83525; 84681

== ENCOUNTER → 2023-05-30 12:08 | Outpatient (CLI) | payer MEDICARE, SELFPAY ==
--- NOTE | ~2023-05-30 | XR_ITS ---
Supine and upright views of the abdomen Clinical history: Constipation COMPARISON: 09/17/2020 Findings: Bowel gas pattern is nonspecific. No evidence for obstruction or free air. No abnormal mass lesion or calcification is seen. Osseous structures are intact. Impression: No significant abnormality is seen. Reviewed, dictated and finalized at [facility]. INSPECTOR Impression: No significant abnormality is seen.
== END ==
PROVIDERS: PCP Nurse Practitioner Family; Visit Provider Nurse Practitioner Family
DX: K59.00 Constipation, unspecified (principal)
CPT/HCPCS: 74019

== ENCOUNTER 2023-07-11 11:21 | Emergency (ER) | payer MEDICARE, SELFPAY ==
[2023-07-11] VITALS (20 sets, daily range): BP systolic 140–187; BP diastolic 79–89; PULSE 53–66; RESP 12–17; TEMP 36.7; O2SAT 97–100
--- NOTE | ~2023-07-11 | XR_ITS ---
Clinical Indication: Chest pain PA and lateral views of the chest: Comparison: 09/17/2020 Findings: The lungs are clear, without evidence of focal consolidation or pleural effusion. Cardiome diastinal silhouette is within normal limits. Bones and soft tissues are unchanged, probable loose demond dy in the right subscapularis recess. Impression: Clear lungs. Reviewed, dictated and finalized at location . LAYER Impression: Clear lungs.
--- NOTE | 2023-07-11 11:44 | ECG_ITS ---
Measurements Intervals [place] Rate: 64 P: 20 [place]: 134 QRS: -37 QRSD: 129 T: 10 QT: 443 QTc: 459 Interpretive Statements SINUS RHYTHM ATRIAL PREMATURE COMPLEX LEFT AXIS DEVIATION RIGHT BUNDLE BRANCH BLOCK BASELINE ARTIFACT- I, II, III, V6 ABNORMAL ECG COMPARED TO ECG 09/17/2020 15:10:58 LEFT-AXIS DEVIATION NOW PRESENT Electronically Signed On 07-11-2023 12:10:52 SENIOR ACCOUNT REPRESENTATIVE by Rubens Ruiz D.O.
[2023-07-11 12:02] LABS: Basophils Percent Auto 0.6 % (0.2-1.2); Eosinophils Absolute Auto 0.1 K/mm3 (0-0.3); Eosinophils Percent Auto 1.5 % (0-4.4); Hematocrit 44.7 % (42.0-52.0); Hemoglobin 14.6 g/dL (14.0-18.0); Immature Granulocyte Absolute 0.02 K/mm3 (0.00-0.031); Immature Granulocyte Percent A 0.3 % (0-0.5); Lymphocytes Absolute Auto 1.05 K/mm3 (0.9-3.2); Lymphocytes Percent Auto 16.2 % (18.3-44.2); Mean Corpuscular HGB Conc 32.7 g/dl (32-36); Mean Corpuscular Hemoglobin 30.7 pg (26-34); Mean Corpuscular Volume 94.1 fl (80-100); Mean Platelet Volume 10.8 fl (7.4-10.4); Monocytes Absolute Auto 0.6 K/mm3 (0.1-0.6); Monocytes Percent Auto 8.5 % (2.6-8.5); Neutrophils Absolute Auto 4.7 K/mm3 (1.3-6.7); Neutrophils Percent Auto 72.9 % (45.5-73.1); Platelet Count Result 215 k/mm3 (150-375); Red Blood Count 4.75 M/mm3 (4.6-6.20); Red Cell Distribution Width 12.5 % (11.5-14.5); White Blood Count 6.5 K/mm3 (4.5-10.0)
[2023-07-11 12:03] LABS: Appearance Urine Clear (Clear); Bilirubin Urine Negative (Negative); Blood Urine Negative (Negative); Color Urine Yellow (Yellow); Glucose Urine UA Negative (Negative); Ketones Urine Negative (Negative); Leukocyte Esterase Ur Negative LEU/UL (Negative); Nitrate Urine Negative (Negative); Protein Urine Negative (Negative); Specific Grav Ur 1.007 (1.001-1.035); Urobilinogen Urine 0.2 mg/dL (<2.0); pH Urine 5.5 (5.0-9.0)
[2023-07-11 12:10] LABS: Prothrombin Time 13.8 Seconds (11.1-14.7)
[2023-07-11 12:11] LABS: Partial Thromboplastin Time 28.5 SECONDS (22.3-36.8)
[2023-07-11 12:16] LABS: Alanine Aminotransferase 15 U/L (6-50); Alkaline Phosphatase 86 U/L (38-126); Anion Gap 8 mmol/L (8-16); Aspartate Amino Transferase 27 U/L (17-59); Bilirubin,Total 1.4 mg/dL (0.2-1.3); Blood Urea Nitrogen 20 mg/dL (9-20); Carbon Dioxide 25 mmol/L (22-30); Chloride 103 mmol/L (98-107); Estimated CRCL calculation 57 ml/min; Estimated Glomerular Filt Rate > 60; Glucose 103 mg/dL (65-110); Lipase 56 U/L (23-300); Potassium 4.2 mmol/L (3.4-5.0); Sodium 136 mmol/L (137-145)
--- NOTE | 2023-07-11 12:20 | ED.GENADULT ---
HPI - General Adult General Chief complaint: Recheck/Abnormal Lab/Rx Stated complaint: HTN Time Seen by Provider: 07/11/23 12:10 Source: patient Mode of arrival: ambulatory Limitations: no limitations History of Present Illness HPI narrative: 78 years old white male came to the ED by private car from home complaining of his blood pressure machine reading high at home more than 180 systolic. He denies any chest pain, shortness of breath, headache, back pain or abdominal pain. History of hypertension on lisinopril 10 mg once a day. Use to be on 20 mg but because of weight loss lisinopril was adjusted down to 10 mg once a day Related Data Home Medications Medication Instructions Recorded Confirmed acetaminophen 500 mg tablet 1,000 mg PO BID PRN Pain 11/04/20 04/25/23 capsicum (cayenne) 500 mg capsule 500 mg PO DAILY 11/04/20 04/25/23 cholecalciferol (vitamin D3) 125 125 mcg PO DAILY 11/04/20 04/25/23 mcg (5,000 unit) tablet (Vitamin D3) coenzyme Q10 100 mg tablet 100 mg PO DAILY 11/04/20 04/25/23 ibuprofen 200 mg tablet 400 mg PO Q6H PRN Back Pain 11/04/20 04/25/23 melatonin 10 mg tablet 10 mg PO HS PRN Insomnia 11/04/20 04/25/23 pyridoxine (vitamin B6) 100 mg 100 mg PO DAILY 11/04/20 04/25/23 tablet Allergies Allergy/AdvReac Type Severity Reaction Status Date / Time simvastatin Allergy Unknown Cramping Verified 05/30/23 11:04 of the Muscles Review of Systems Review of Systems: All systems reviewed & are unremarkable except as noted in HPI and below PMFSH Past Medical History Medical History Atrophy of muscle of left thigh Colon polyps Obesity (BMI 30.0-34.9) Surgical History Surgical History History of lumbar laminectomy for spinal cord decompression Family History Family History Mother Family history of thyroid disease Hypertension Other Family history of cardiovascular disease Malignant neoplasm of prostate Social History Social History Smoking status: Former smoker Alcohol intake: never Substance use: former Substance use type: marijuana Other substance usage details: Daily for pain Lack of Transportation: No Lack of Food: Never True Current Housing: I Have Housing Concerned About Future Housing: No Difficulty Paying Gas/Electric Bills: No Difficulty Paying for Meds: No Currently Unemployed: No Education: High School Diploma/GED Difficulty w/ Childcare or Family Care: No Living arrangements: with family Gender identity (if verbalized by the patient): Male Spiritual care concerns: No Exam Narrative: General appearance: Well-developed, well-nourished Skin: Normal color Head: Normocephalic, nontraumatic Eyes: Clear conjunctiva ENT: Oropharynx normal, ears normal, nose normal Neck: Supple, nontender Chest and respiratory: Airway patent, no respiratory distress, no accessory muscle use Heart: Regular rate/rhythm Abdomen: Soft, nontender, no organomegaly, quiet bowel sounds Vascular: Normal peripheral pulses, normal capillary refill. Musculoskeletal: Normal range of motion, nontender back Neurologic: Alert and oriented ?3, TECHNICAL SUPPORT TECHNICIAN is normal as tested, no gross motor deficit Course Vital Signs Vital signs: Vital Signs Temperature 36.7 C 07/11/23 11:38 Pulse Rate 66 07/11/23 11:38 Respiratory Rate 16 07/11/23 11:38 Blood Pressure 187/87 H 07/11/23 11:38 Pulse Oximetry 100 07/11/23 11:38 Oxygen Delivery Room Air 07/11/23 11:38
[2023-07-11 12:22] LABS: Add Urine Microscopic? NO
[2023-07-11 12:23] LABS: Troponin I < 0.012 ng/mL (0.000-0.034)
== END 2023-07-11 14:36 | disposition home or self-care (01) ==
PROVIDERS: Emergency Medicine; Emergency Provider Emergency Medicine; PCP Family Medicine
DX: I10 Essential (primary) hypertension (principal); R94.31 Abnormal electrocardiogram [ECG] [EKG]; Z86.010 Personal history of colon polyps; Z87.891 Personal history of nicotine dependence
CPT/HCPCS: 36415; 71046; 80053; 81003; 83690; 84484; 85025; 85610; 85730; 93005; 99284

== ENCOUNTER 2023-07-17 13:28 | Emergency (ER) | payer MEDICARE, SELFPAY ==
--- NOTE | ~2023-07-17 | XR_ITS ---
EXAMINATION: XR chest 2V DATE: 07/17/2023 14:47 INDICATION: Chest pain and hypertension TECHNIQUE: PA and lateral views of the chest were obtained. COMPARISON: Chest radiograph dated 07/11/2023 FINDINGS: Unchanged eventration and elevation of the posterior left hemidiaphragm with mild left basilar atelec tasis. Tiny calcified nodule in the right midlung zone. No pulmonary edema, pleural effusion or pneum othorax. Heart size is normal. Tortuous thoracic aorta. Visualized bones and soft tissues are unremar kable. Osteoarthritis at the bilateral glenohumeral joints, right greater than left with loose osteoc hondral bodies at the bilateral deep subscapular recesses. IMPRESSION: 1. 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 Reviewed, dictated and finalized at location A. PRODUCTION IMPRESSION: 1. 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
[2023-07-17 13:28] VITALS: BP 207/101; PULSE 85; RESP 16; TEMP 36.8; O2SAT 98
--- NOTE | 2023-07-17 13:30 | ECG_ITS ---
Measurements Intervals [place] Rate: 72 P: 9 [place]: 141 QRS: -56 QRSD: 128 T: 0 QT: 400 QTc: 439 Interpretive Statements SINUS RHYTHM WITH OCCASIONAL VENTRICULAR PREMATURE COMPLEXES RIGHT BUNDLE BRANCH BLOCK [120+ ms QRS DURATION, UPRIGHT V1, 40+ ms S IN I/aVL/V4/V5/V6] LEFT ANTERIOR FASCICULAR BLOCK [QRS AXIS <= -45, QR IN I, RS IN II] ABNORMAL ECG COMPARED TO ECG 07/11/2023 11:47:18 NO DIFFERENCE Electronically Signed On 07-17-2023 17:00:03 GUEST SERVICES OFFICER by Elie Mathews M.D.
--- NOTE | 2023-07-17 13:42 | ED.GENADULT ---
HPI - General Adult General Chief complaint: Chest Pain <Bonilla Dallas PA-C - Last Filed: 07/17/23 13:47> Stated complaint: HTN <Bonilla Dallas PA-C - Last Filed: 07/17/23 13:47> Time Seen by Provider: 07/17/23 13:42 <Bonilla Dallas PA-C - Last Filed: 07/17/23 13:47> Focused HPI: This is a 78-year-old male with PMH of anxiety, HTN, lumbar stenosis who presents to the ED with chief complaint of elevated blood pressures. Reports he has been changing blood pressure medications recently and has been trying to get BP under control. Reports after checking his blood pressure this morning he noted some central chest discomfort. No radiation of pain. No association with exertion. Denies syncope, lightheadedness, nausea, vomiting or sweats. States that it chest pain with shortly accompanied by bilateral hand tingling and perioral tingling. Denies any fevers, chills, shortness of breath or cough. No leg swelling. GENERAL: Well-appearing, well-nourished, and in no acute distress. HEAD: Normocephalic, atraumatic. CHEST: Clear to auscultation. No respiratory distress. HEART: Regular rate and rhythm. NEURO: Alert and oriented x3. Patient screened in triage and initial orders placed. Additional care and disposition to be based upon diagnostic testing and treatment. <Bonilla Dallas PA-C - Last Filed: 07/17/23 13:47> Source: patient <MOUSTAPHA Daniels Last Filed: 07/17/23 13:47> Mode of arrival: ambulatory <MOUSTAPHA Daniels Last Filed: 07/17/23 13:47> Limitations: no limitations <Bonilla Dallas PA-C - Last Filed: 07/17/23 13:47> History of Present Illness HPI narrative: 78-year-old male present to the emergency department for evaluation of high blood pressure. Patient had previously been on 10 mg of lisinopril but this was recently increased to 20 mg of lisinopril once daily. Patient did have follow-up with Cardiology and was not advised that he could increase his lisinopril to twice daily as needed. Patient states he took his lisinopril this morning as scheduled approximately 530 and he notices blood pressure was still elevated at noon so he took an 2nd 20 mg lisinopril and presented to the emergency department for evaluation. At time of evaluation patient's blood pressure was improved at 170 systolic. Patient states he did have some chest pressure earlier but at time of examination denies any chest pain shortness of breath nausea vomiting confusion <Jonny Ward MD - Last Filed: 07/18/23 08:12> Related Data Home medications: Home Medications Medication Instructions Recorded Confirmed acetaminophen 500 mg tablet 1,000 mg PO BID PRN Pain 11/04/20 04/25/23 capsicum (cayenne) 500 mg capsule 500 mg PO DAILY 11/04/20 04/25/23 cholecalciferol (vitamin D3) 125 125 mcg PO DAILY 11/04/20 04/25/23 mcg (5,000 unit) tablet (Vitamin D3) coenzyme Q10 100 mg tablet 100 mg PO DAILY 11/04/20 04/25/23 ibuprofen 200 mg tablet 400 mg PO Q6H PRN Back Pain 11/04/20 04/25/23 melatonin 10 mg tablet 10 mg PO HS PRN Insomnia 11/04/20 04/25/23 pyridoxine (vitamin B6) 100 mg 100 mg PO DAILY 11/04/20 04/25/23 tablet <Bonilla Dallas PA-C - Last Filed: 07/17/23 13:47> Allergies/adverse reactions: Allergies Allergy/AdvReac Type Severity Reaction Status Date / Time simvastatin Allergy Unknown Cramping Verified 05/30/23 11:04 of the Muscles hydrochlorothiazide AdvReac Cramping Verified 07/17/23 17:56 of the Muscles <Bonilla Dallas PA-C - Last Filed: 07/17/23 13:47> Review of Systems Review of Systems: All systems reviewed & are unremarkable except as noted in HPI and below <Jonny Ward MD - Last Filed: 07/18/23 08:12> [facility] Past Medical History Medical History: Medical History Atrophy of muscle of left thigh Colon polyps Obesity (BMI 30.0-34.9) <Bonilla Dallas PA-C - Last Filed:
[2023-07-17 14:11] LABS: Basophils Absolute Auto 0.1 K/mm3 (0.0-0.1); Basophils Percent Auto 0.7 % (0.2-1.2); Eosinophils Absolute Auto 0.1 K/mm3 (0-0.3); Eosinophils Percent Auto 1.5 % (0-4.4); Hematocrit 44.2 % (42.0-52.0); Hemoglobin 14.1 g/dL (14.0-18.0); Immature Granulocyte Absolute 0.03 K/mm3 (0.00-0.031); Immature Granulocyte Percent A 0.4 % (0-0.5); Lymphocytes Absolute Auto 1.02 K/mm3 (0.9-3.2); Lymphocytes Percent Auto 15.1 % (18.3-44.2); Mean Corpuscular HGB Conc 31.9 g/dl (32-36); Mean Corpuscular Hemoglobin 30.4 pg (26-34); Mean Corpuscular Volume 95.3 fl (80-100); Monocytes Absolute Auto 0.4 K/mm3 (0.1-0.6); Monocytes Percent Auto 6.1 % (2.6-8.5); Neutrophils Absolute Auto 5.1 K/mm3 (1.3-6.7); Neutrophils Percent Auto 76.2 % (45.5-73.1); Platelet Count Result 227 k/mm3 (150-375); Red Blood Count 4.64 M/mm3 (4.6-6.20); Red Cell Distribution Width 12.8 % (11.5-14.5); White Blood Count 6.8 K/mm3 (4.5-10.0)
[2023-07-17 14:18] LABS: Partial Thromboplastin Time 26.2 SECONDS (22.3-36.8); Prothrombin Time 13.4 Seconds (11.1-14.7)
[2023-07-17 14:22] LABS: Alanine Aminotransferase 18 U/L (6-50); Albumin Level 3.8 g/dL (3.5-5.1); Alkaline Phosphatase 75 U/L (38-126); Anion Gap 6 mmol/L (8-16); Aspartate Amino Transferase 23 U/L (17-59); Bilirubin,Total 0.9 mg/dL (0.2-1.3); Blood Urea Nitrogen 16 mg/dL (9-20); Calcium 9.2 mg/dL (8.4-10.2); Carbon Dioxide 29 mmol/L (22-30); Chloride 104 mmol/L (98-107); Estimated CRCL calculation 63 ml/min; Estimated Glomerular Filt Rate > 60; Glucose 164 mg/dL (65-110); Lipase 74 U/L (23-300); Potassium 3.7 mmol/L (3.4-5.0); Sodium 139 mmol/L (137-145)
[2023-07-17 14:32] LABS: Troponin I < 0.012 ng/mL (0.000-0.034)
[2023-07-17 17:00] VITALS: PULSE 72; O2SAT 99
--- NOTE | 2023-07-17 17:00 | ECG_ITS ---
Measurements Intervals [place] Rate: 62 P: 21 [place]: 159 QRS: -38 QRSD: 132 T: 4 QT: 438 QTc: 447 Interpretive Statements SINUS RHYTHM RIGHT BUNDLE BRANCH BLOCK LEFT ANTERIOR SUPERIOR HEMIBLOCK ABNORMAL ECG COMPARED TO ECG 07/17/2023 13:34:01 NO CHANGE Electronically Signed On 07-17-2023 17:08:07 CURRICULUM ASSISTANT by Elie Mathews M.D.
[2023-07-17 17:02] VITALS: BP 172/94; PULSE 72; RESP 19; O2SAT 99
[2023-07-17 17:05] LABS: Troponin I < 0.012 ng/mL (0.000-0.034)
[2023-07-17] MEDS: hydroCHLOROthiazide 25 MG TABLET PO (17:24)
[2023-07-17] MEDS: hydrALAZINE HCL 20 MG/ML VIAL 10 MG IV PUSH (17:24)
[2023-07-17 17:47] VITALS: BP 156/86; PULSE 81; RESP 17; O2SAT 100
[2023-07-17 18:29] VITALS: BP 165/89; PULSE 78; RESP 17; O2SAT 100
== END 2023-07-17 18:31 | disposition home or self-care (01) ==
PROVIDERS: Family Medicine; Emergency Provider Emergency Medicine; PCP Family Medicine
DX: I10 Essential (primary) hypertension (principal); E66.9 Obesity, unspecified; Z68.27 Body mass index [BMI] 27.0-27.9, adult; Z86.010 Personal history of colon polyps; Z87.891 Personal history of nicotine dependence; R07.89 Other chest pain; I45.2 Bifascicular block
CPT/HCPCS: 36415; 71046; 80053; 83690; 84484; 85025; 85610; 85730; 93005; 96374; 99284; A9270; J0360

== ENCOUNTER 2024-01-01 09:57 | Outpatient (CLI) | payer MEDICARE, SELFPAY ==
--- NOTE | ~2024-01-01 | US_ITS ---
US soft tissue head and neck 01/01/2024 10:11 Indication: Right neck mass for years. Procedure: High-resolution Limited ultrasound of the right neck in the area of palpable concern. Comparison: No prior studies for comparison. Findings: There is a irregular shaped hypoechoic mass with internal vascularity measuring 3.2 x 2.2 x 1.9 cm. There is heterogeneous internal echotexture. This mass is located adjacent to the significan t vascular structures of the neck. Impression: 1: Irregular shaped 3.2 cm right neck mass in the area palpable concern. Recommend percutaneous biops y to exclude malignancy. Reviewed, dictated and finalized at location B. Impression: 1: Irregular shaped 3.2 cm right neck mass in the area palpable concern. Recomm end percutaneous biopsy to exclude malignancy.
== END 2024-01-01 09:58 ==
LOC: GOSHIMG 09:57
PROVIDERS: PCP Family Medicine; Visit Provider Family Medicine
DX: R22.1 Localized swelling, mass and lump, neck (principal)
CPT/HCPCS: 76536

== ENCOUNTER 2024-01-17 09:05 | Outpatient (CLI) | payer MEDICARE, SELFPAY ==
--- NOTE | ~2024-01-17 | US_ITS ---
EXAMINATION: US biopsy st neck thorax DATE: 01/17/2024 11:07 INDICATION: Localized swelling, mass and lump, neck. TECHNIQUE: The procedure including the risks, benefits, and alternatives was discussed with the patie nt. Risks discussed included bleeding and infection. The patient understood the risks and agreed to p roceed. The skin overlying the right neck was prepped and draped in usual sterile fashion. Anestheti c was administered with 1% lidocaine subcutaneously. An 18 gauge core biopsy needle was then used to obtain 6 core biopsy specimens under continuous sonographic guidance. The entry site was cleaned and dressed. There were no immediate complications. FINDINGS: Ultrasound images demonstrate the needle in a 2.9 x 2.9 x 1.7 cm high right internal jugula r chain lymph node. IMPRESSION: 1. Ultrasound-guided core needle biopsy of a high right internal jugular chain lymph node. Reviewed, dictated and finalized at location A.
== END 2024-01-17 09:06 | disposition home or self-care (01) ==
PROVIDERS: PCP Family Medicine; Visit Provider Family Medicine
DX: C76.0 Malignant neoplasm of head, face and neck (principal)
CPT/HCPCS: 20206; 76942; 88305; 88342

== ENCOUNTER 2024-09-03 09:30 | Outpatient (CLI) | payer MEDICARE, SELFPAY ==
--- NOTE | ~2024-09-03 | XR_ITS ---
XR shoulder LT min 2V Ordering provider: BEBO Morfin History: . M54.12 - Radiculopathy, cervical region . Comparison: None. FINDINGS: BONES: No acute fracture or dislocation. Degenerative changes in the area of the greater tuberosity. JOINT SPACES: The acromioclavicular joint shows osteoarthritic changes. The glenohumeral joint shows severe osteoarthritic changes. SOFT TISSUES: Normal. IMPRESSION: No acute osseous abnormality left shoulder. Severe osteoarthritic changes of the glenohumeral joint. Moderate osteoarthritic changes of the acrom ioclavicular joint. Reviewed, dictated and finalized at location A. IMPRESSION: No acute osseous abnormality left shoulder. Severe osteoarthritic changes of the glenohumeral joint. Moderate osteoarthriti c changes of the acromioclavicular joint.
== END 2024-09-03 09:31 | disposition home or self-care (01) ==
LOC: GOSHIMG 09:31
PROVIDERS: PCP Nurse Practitioner Family; Visit Provider Nurse Practitioner Family
DX: M19.012 Primary osteoarthritis, left shoulder (principal)
CPT/HCPCS: 73030

== ENCOUNTER 2024-09-05 14:48 | Outpatient (CLI) | payer MEDICARE, SELFPAY ==
--- NOTE | ~2024-09-05 | MR_ITS ---
EXAMINATION: MR cervical spine wo con DATE: 09/05/2024 15:19 INDICATION: Neck pain. Other spondylosis, cervical region. TECHNIQUE: Magnetic resonance imaging (MRI) of the cervical spine was performed without intravenous c ontrast. COMPARISON: None FINDINGS: There is mild kyphosis of cervical spine. Vertebral body heights are normal. There is sever josh decreased disc height from C2-C3 through C6-C7 with interbody fusion at C2-C3, C3-C4, and C5-C6. At C4-C5, the spinal cord is small with increased T2-weighted signal intensity, consistent with myelo malacia. The following disc levels are specifically discussed: C2-C3: There is severe right and moderate left uncovertebral joint hypertrophy. There is moderate lef t facet joint osteoarthritis. There is ankylosis of right facet joint with severe hypertrophy. There is moderate right and mild left neural foraminal stenosis. There is no central canal stenosis. C3-C4: There is severe bilateral uncovertebral joint hypertrophy. There is mild right facet joint ost eoarthritis. There is ankylosis of left facet joint with severe hypertrophy. There is severe bilatera l neural foraminal stenosis. There is mild central canal stenosis. C4-C5: The disc is bulging. There is severe bilateral uncovertebral joint osteoarthritis. There is se justin bilateral facet joint osteoarthritis. There is severe bilateral neural foraminal stenosis. There is moderate central canal stenosis. C5-C6: There is severe bilateral uncovertebral joint hypertrophy. There is no facet joint osteoarthri tis. There is moderate right and severe left neural foraminal stenosis. There is mild central canal s tenosis. C6-C7: The disc is bulging. There is severe bilateral uncovertebral joint osteoarthritis. There is se justin bilateral facet joint osteoarthritis. There is moderate bilateral neural foraminal stenosis. The re is mild central canal stenosis. C7-T1: There is a central extrusion. There is no uncovertebral joint osteoarthritis. There is severe bilateral facet joint osteoarthritis. There is mild bilateral neural foraminal stenosis. There is no central canal stenosis. IMPRESSION: 1. 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 2. Severe cervical spondylosis. Reviewed, dictated and finalized at location A.
== END 2024-09-05 14:49 | disposition home or self-care (01) ==
LOC: GOSHIMG 14:48
PROVIDERS: PCP Nurse Practitioner Family; Visit Provider Nurse Practitioner Family
DX: M47.22 Other spondylosis with radiculopathy, cervical region (principal)
CPT/HCPCS: 72141